=== PATIENT | female | born 1945 | race Caucasian/White ===

== ENCOUNTER 2022-10-08 09:38 | Day surgery (SDC) | payer MEDICARE ==
[~2022-10-08] VITALS: Ht 149.9 cm; Wt 76.7 kg
[~2022-10-08 09:38] MED LIST: ALLE24TA7 PO; BSS IRRIG/VANCO(10MG)/TOBRA(5MG)/EPINEPH(1:1000-0.5CC)500ML BAG-ORONLY IR ONE; CALC600T18 PO; CIDA500T2 PO; CINN500C15 PO; CYCLOPENTOLATE 1% OPHTH SOLN 2ML BTL OD SCH; FLUT50SP17 INH; KP F1200 PO; LIDOCAINE 3.5 % 1ML OPHTH TOPICAL GEL OU ONE; MELA5TAB47 PO; METR0.7534 TOP; MIDAZOLAM INJ 2MG/2ML VIAL As Ordered ONE; OFLOXACIN 0.3 % (OCUFLOX) OPTH SOL 5ML OD ONE; PHENYLEPHRINE 10% OPHTH SOL 5ML OD PRN; PHENYLEPHRINE 2.5% OPHTH SOL 2ML OD SCH; RA G580C PO; THERTAB52 PO; TROPICAMIDE 1% OPHTH SOLN 15ML OD SCH; TUMERIC PO; VITA500C24 PO; fentaNYL 100 MCG/2 ML INJECTION As Ordered ONE
[2022-10-08] MEDS ORDERED: LIDOCAINE 1% SDV 5ML VIAL As Ordered ONE (10:11)
[2022-10-08 12:13] VITALS: BP 156/75; TEMP 98.3; O2SAT 98
== END 2022-10-08 12:15 | disposition home or self-care (01) ==
LOC: M SDC 09:38
PROVIDERS: ATTEND Ophthalmology
DX: H25.11 Age-related nuclear cataract, right eye (principal); R06.83 Snoring; M13.80 Other specified arthritis, unspecified site; Z88.1 Allergy status to other antibiotic agents; Z88.2 Allergy status to sulfonamides; Z88.8 Allergy status to other drugs, medicaments and biological substances; Z91.040 Latex allergy status; Z79.899 Other long term (current) drug therapy
CPT/HCPCS: 66984; 92015; J2250; J3010; V2632